=== PATIENT | female | born 1950 | race Caucasian/White ===

== ENCOUNTER 2022-06-13 23:09 | Emergency (ER) | payer OTHER ==
[~2022-06-13] VITALS: Ht 167.6 cm; Wt 81.7 kg
== END 2022-06-14 02:15 | disposition home or self-care (01) ==
LOC: ER 23:09
DX: G50.0 Trigeminal neuralgia (principal)
CPT/HCPCS: 96365; 96375; 99283-25; A9270; J1165; J1885; J2270

== ENCOUNTER 2024-04-25 12:45 | Inpatient (IN) | payer OTHER ==
[~2024-04-25] VITALS: Ht 175.3 cm; Wt 85.9 kg
[2024-04-25] MEDS ORDERED: LOSARTAN POTASS25 M2 PO (13:01)
[2024-04-25] MEDS ORDERED: Amitriptyline H10 MG PO (13:01)
[2024-04-25 13:54] LABS: Prothrombin Time Results 10.7 Sec (9.7-11.5)
[2024-04-25 14:02] LABS: Albumin, Blood 3.5 g/dL (3.4-5.0); Bilirubin, Total 0.5 mg/dL (0.1-1.0); Bun/Creatinine Ratio 21.8 (12.0-20.0); Creatinine, Blood 0.6 mg/dL (0.40-1.00); Globulin, Blood 3.5 g/dL (2.2-4.0); Potassium, Blood 4.9 mmol/L (3.5-5.5)
[2024-04-25 16:14] LABS: BASOPHILS ABSOLUTE AUTO 0.04 K/mm3 (0.00-0.23); BASOPHILS PERCENT AUTO 1 % (0-2); EOSINOPHILS ABSOLUTE AUTO 0.15 K/mm3 (0.00-0.68); EOSINOPHILS PERCENT AUTO 2 % (0-6); Hematocrit 43.3 % (33.0-51.0); Hemoglobin 14.3 g/dL (11.5-16.0); IMMATURE GRAN ABSOLUTE AUTO 0.04 K/mm3 (0.00-0.10); IMMATURE GRAN PERCENT AUTO 1 % (0-1); LYMPHOCYTES ABSOLUTE AUTO 1.71 K/mm3 (0.84-5.20); LYMPHOCYTES PERCENT AUTO 23 % (21-46); MONOCYTES ABSOLUTE AUTO 0.48 K/mm3 (0.16-1.47); MONOCYTES PERCENT AUTO 7 % (4-13); Mean Corpuscular HGB 33.6 pg (26.0-34.0); Mean Corpuscular Volume 102 fL (80-100); Mean Platelet Volume 9.9 fL (9.1-12.4); NEUTROPHILS ABSOLUTE AUTO 4.97 K/mm3 (1.96-9.15); NEUTROPHILS PERCENT AUTO 67 % (41-73); Platelet Count 238 K/mm3 (150-400); RDW Coefficient Variation 13.2 % (11.7-14.2); RDW Standard Deviation 49.8 fL (35.1-46.3); Red Blood Cell Count 4.25 M/mm3 (3.80-5.20); White Blood Cell Count 7.39 K/mm3 (4.00-11.30)
[2024-04-25] MEDS ORDERED: FLU VACC TS2024-25(6MOS UP)/PF 45 MCG/0.5 ML SYRINGE IM SCH (16:20)
[2024-04-25] MEDS ORDERED: Ondansetron HCl 2 MG / ML 2ML Vial IV PRN (16:20)
[2024-04-25] MEDS ORDERED: FentaNYL Citrate 50 MCG/ML 2 ML Injection IV PRN (16:20)
[2024-04-25 16:27] LABS: Anti-Xa UFH, PHA Monitoring <0.10 IU/mL
[2024-04-25] MEDS ORDERED: Heparin Sodium,Porcine/0.5 NS 500 ML IV SCH (16:55)
[2024-04-25] MEDS ORDERED: Heparin Sodium 10,000 Units/ML 1ML MDV IV ONE (16:55)
[2024-04-25] MEDS ORDERED: Amitriptyline HCl 10 MG Tab PO SCH (21:00)
[2024-04-25] MEDS ORDERED: Amitriptyline HCl 50 MG Tab PO ONE (21:55)
[2024-04-25] MEDS ORDERED: Amitriptyline HCl 10 MG Tab PO ONE (22:35)
[2024-04-26] MEDS ORDERED: Dose Adjust by Pharmacy XX STA ×2 (02:12→08:47)
[2024-04-26 06:26] LABS: BASOPHILS ABSOLUTE AUTO 0.04 K/mm3 (0.00-0.23); BASOPHILS PERCENT AUTO 1 % (0-2); EOSINOPHILS ABSOLUTE AUTO 0.19 K/mm3 (0.00-0.68); EOSINOPHILS PERCENT AUTO 3 % (0-6); Hematocrit 38.4 % (33.0-51.0); IMMATURE GRAN ABSOLUTE AUTO 0.06 K/mm3 (0.00-0.10); IMMATURE GRAN PERCENT AUTO 1 % (0-1); LYMPHOCYTES ABSOLUTE AUTO 1.88 K/mm3 (0.84-5.20); LYMPHOCYTES PERCENT AUTO 33 % (21-46); MONOCYTES ABSOLUTE AUTO 0.45 K/mm3 (0.16-1.47); MONOCYTES PERCENT AUTO 8 % (4-13); Mean Corpuscular HGB 34.2 pg (26.0-34.0); Mean Corpuscular HGB Conc 33.9 g/dL (31.5-36.5); Mean Corpuscular Volume 101 fL (80-100); Mean Platelet Volume 9.8 fL (9.1-12.4); NEUTROPHILS ABSOLUTE AUTO 3.12 K/mm3 (1.96-9.15); NEUTROPHILS PERCENT AUTO 54 % (41-73); Platelet Count 225 K/mm3 (150-400); RDW Coefficient Variation 13.2 % (11.7-14.2); RDW Standard Deviation 49.5 fL (35.1-46.3); White Blood Cell Count 5.74 K/mm3 (4.00-11.30)
[2024-04-26] MEDS ORDERED: BACLOFEN5 M1 PO (06:35)
[2024-04-26] MEDS ORDERED: OXYC10TA19 PO (06:38)
[2024-04-26 06:39] VITALS: BP 178/93
[2024-04-26 06:49] LABS: Albumin, Blood 3.4 g/dL (3.4-5.0); Bilirubin, Total 0.6 mg/dL (0.1-1.0); Bun/Creatinine Ratio 16.8 (12.0-20.0); Calcium, Blood 8.9 mg/dL (8.5-10.1); Creatinine, Blood 0.66 mg/dL (0.40-1.00); Globulin, Blood 3.3 g/dL (2.2-4.0); Potassium, Blood 3.9 mmol/L (3.5-5.5); Total Protein, Blood 6.7 g/dL (6.4-8.2)
[2024-04-26 06:52] VITALS: BP 162/98
--- NOTE | 2024-04-26 07:25 | NUR ---
upon arrival of shift, during report, it was found that theheparin was never restarted when the patient [facility] to the [facility]. charge, md, PHARMACY AND PATIENT WERE ALL NOTIFIED, STAT ANTIXAWAS ORDERED AND COMPLETED.
[2024-04-26 08:22] VITALS: BP 148/94
[2024-04-26] MEDS ORDERED: Losartan Potassium 25 MG Tab PO SCH (09:00)
--- NOTE | 2024-04-26 09:18 | NUR ---
PATIENT ANTIXA CAME BACK THERAPEUTIC, SO PER PHARMACY, DRIP WILL CONTINUE @15
--- NOTE | 2024-04-26 09:38 | NUR ---
SPOKE WITH MD, HE STATED THAT PATIENT IS OKAY TO GET UP AND WALK TO THE BATHROOM, THIS IS APPARENTLY NOT A SURGICAL PATIENT, SO HE IS ALSO OKAY WITH PATIENT EATING
[2024-04-26] MEDS ORDERED: OxyCODONE HCL 5 MG TAB PO PRN ×3 (11:15→13:40)
[2024-04-26] MEDS ORDERED: Sennosides 8.6 MG Tab PO PRN (11:20)
[2024-04-26] MEDS ORDERED: Enoxaparin 100 MG/ML 1ML SYR SC SCH (12:00)
[2024-04-26] MEDS ORDERED: OxyCODONE HCL 5 MG TAB PO ONE (12:00)
[2024-04-26] MEDS ORDERED: Baclofen 10 MG Tab PO SCH ×2 (12:00→14:00)
[2024-04-26 18:09] VITALS: BP 135/64
[2024-04-26 20:09] VITALS: BP 108/62
[2024-04-26] MEDS ORDERED: Amitriptyline HCl 10 MG Tab PO SCH (21:00)
[2024-04-26 23:22] VITALS: BP 124/80
--- NOTE | 2024-04-27 04:00 | NUR ---
SHIFT SUMMARY NEURO: PT A/OX4. HAS COMPLAINTS OF BAND LIKE HEADACHE ACROSSED FOREHEAD WHEN AMBULATING. EQUAL STRENGTH THROUGHOUT. PERRLA. CARDIAC: NSR, TACHY WHILE AMBULATING. PULSES PRESENT THROUGHOUT. LUNGS: ON 2L NC. INTERMITTENT DESATURATIONS WHILE SLEEPING AND AGAIN WHILE AMBULATING. PT EDUCATED TO USE COMMODE OR BEDPAN FOR FUTURE BATHROOM NEEDS.
[2024-04-27 04:20] VITALS: BP 120/59
[2024-04-27 04:31] LABS: BASOPHILS ABSOLUTE AUTO 0.05 K/mm3 (0.00-0.23); BASOPHILS PERCENT AUTO 1 % (0-2); EOSINOPHILS ABSOLUTE AUTO 0.22 K/mm3 (0.00-0.68); EOSINOPHILS PERCENT AUTO 3 % (0-6); Hematocrit 39.1 % (33.0-51.0); IMMATURE GRAN ABSOLUTE AUTO 0.06 K/mm3 (0.00-0.10); IMMATURE GRAN PERCENT AUTO 1 % (0-1); LYMPHOCYTES PERCENT AUTO 29 % (21-46); MONOCYTES PERCENT AUTO 9 % (4-13); Mean Corpuscular HGB 34.5 pg (26.0-34.0); Mean Corpuscular HGB Conc 33.2 g/dL (31.5-36.5); Mean Corpuscular Volume 104 fL (80-100); Mean Platelet Volume 9.9 fL (9.1-12.4); NEUTROPHILS ABSOLUTE AUTO 3.98 K/mm3 (1.96-9.15); NEUTROPHILS PERCENT AUTO 58 % (41-73); Platelet Count 240 K/mm3 (150-400); RDW Coefficient Variation 13.3 % (11.7-14.2); RDW Standard Deviation 50.6 fL (35.1-46.3); Red Blood Cell Count 3.77 M/mm3 (3.80-5.20); White Blood Cell Count 6.91 K/mm3 (4.00-11.30)
[2024-04-27] MEDS ORDERED: Acetaminophen 325 MG TABLET PO PRN (04:45)
[2024-04-27 04:48] LABS: Bun/Creatinine Ratio 16.7 (12.0-20.0); Calcium, Blood 9.2 mg/dL (8.5-10.1); Creatinine, Blood 1.02 mg/dL (0.40-1.00); Potassium, Blood 4.1 mmol/L (3.5-5.5)
[2024-04-27 08:25] VITALS: BP 128/94
[2024-04-27 11:30] VITALS: BP 130/79
[2024-04-27] MEDS ORDERED: Apixaban 5 MG Tab PO SCH (12:00)
[2024-04-27] MEDS ORDERED: Polyethylene Glycol 3350 17 gm PO PRN (12:05)
[2024-04-27] MEDS ORDERED: ELIQUIS5 M2 PO (14:44)
[2024-04-27 15:33] VITALS: BP 145/75
--- NOTE | 2024-04-27 18:29 | NUR ---
SHIFT SUMMARY PT REMAINS ALERT AND ORIENTED. BP STABLE. HR REMAINS NSR. PT TITRATED TO ROOM AIR FOR A COUPLE HOURS THIS SHIFT AND THEN PLACED BACK ON 2L NC FOR SATS DROPPING TO MID 80'S. PT COMPLAINS OF SHORTNESS OF BREATH WITH EXERTION. PT COMPLAINS OF PAIN TO INCISION SITE UNDER BREASTS. ICE PACKS ON AND OFF THROUGHOUT SHIFT REQUESTED. WILL REPORT OFF TO ONCOMING RN
[2024-04-27 21:20] VITALS: BP 134/84
--- NOTE | 2024-04-27 23:25 | NUR ---
SHIFT UPDATE NEURO: WNL. PT REPORTS NO HEADACHES OR DIZZINESS SINCE LAST NIGHT CARDIAC: WNL. SINUS IN THE 80'S. WILL UPDATE NOTE IF TACHYCARDIA WHILE AMBULATING IS SEEN. LUNGS: PT REMAINS ON 2L NC. ATTEMPTED TO TITRATE DOWN WITHOUT SUCCESS SO FAR THIS SHIFT.
[2024-04-27 23:38] VITALS: BP 117/73
[2024-04-28 03:55] VITALS: BP 101/68
[2024-04-28 04:30] LABS: BASOPHILS ABSOLUTE AUTO 0.03 K/mm3 (0.00-0.23); BASOPHILS PERCENT AUTO 1 % (0-2); EOSINOPHILS ABSOLUTE AUTO 0.25 K/mm3 (0.00-0.68); EOSINOPHILS PERCENT AUTO 4 % (0-6); Hematocrit 38.5 % (33.0-51.0); Hemoglobin 12.7 g/dL (11.5-16.0); IMMATURE GRAN ABSOLUTE AUTO 0.05 K/mm3 (0.00-0.10); IMMATURE GRAN PERCENT AUTO 1 % (0-1); LYMPHOCYTES ABSOLUTE AUTO 2.17 K/mm3 (0.84-5.20); LYMPHOCYTES PERCENT AUTO 37 % (21-46); MONOCYTES ABSOLUTE AUTO 0.47 K/mm3 (0.16-1.47); MONOCYTES PERCENT AUTO 8 % (4-13); Mean Corpuscular Volume 103 fL (80-100); Mean Platelet Volume 9.9 fL (9.1-12.4); NEUTROPHILS PERCENT AUTO 49 % (41-73); Platelet Count 236 K/mm3 (150-400); Red Blood Cell Count 3.74 M/mm3 (3.80-5.20); White Blood Cell Count 5.87 K/mm3 (4.00-11.30)
[2024-04-28 05:18] LABS: Albumin, Blood 3.2 g/dL (3.4-5.0); Bilirubin, Total 0.4 mg/dL (0.1-1.0); Bun/Creatinine Ratio 29.2 (12.0-20.0); Calcium, Blood 9.2 mg/dL (8.5-10.1); Creatinine, Blood 0.72 mg/dL (0.40-1.00); Globulin, Blood 3.1 g/dL (2.2-4.0); Potassium, Blood 4.2 mmol/L (3.5-5.5); Total Protein, Blood 6.3 g/dL (6.4-8.2)
[2024-04-28 07:48] VITALS: BP 119/82
[2024-04-28 15:22] VITALS: BP 134/84
--- NOTE | 2024-04-28 18:02 | NUR ---
SHIFT SUMMARY PT REMAINS ALERT AND ORIENTED. BP STABLE. HR REMAINS NSR. O2 SATS HAVE REMAINED ABOVE 90% ON RA THIS AFTERNOON. PT EDUCATED ON USE OF INCENTIVE SPIROMETER AND HAS BEEN USING IT FREQUENTLY. PT CONTINUE TO COMPLAIN OF PAIN AT TIMES TO INCISION SITE UNDER BREATS. ICE PACKS PROVIDED REQUESTED. PT UP AMBULATING IN THE ROOM THROUGHOUT THE DAY. WILL REPORT OFF TO ONCOMING RN
[2024-04-28 19:49] VITALS: BP 137/88
[2024-04-28] MEDS ORDERED: TraZODone HCl 50 MG Tab PO ONE (20:10)
--- NOTE | 2024-04-28 23:04 | NUR ---
SHIFT UPDATE NEURO: WNL CARDIAC: SINUS ON TELE. NO CHEST PAIN RESPIRATORY: PT AMBULATING IN THE [facility] WITH A PORTABLE PULSE OX ON RA AND REPORTS SATURATIONS LOW 88%. PT IS UTILIZING THE INCENTIVE SPIROMETER AND IS PULLING 1000ML.
[2024-04-29 02:48] VITALS: BP 139/87
[2024-04-29 04:18] LABS: BASOPHILS ABSOLUTE AUTO 0.04 K/mm3 (0.00-0.23); BASOPHILS PERCENT AUTO 1 % (0-2); EOSINOPHILS ABSOLUTE AUTO 0.27 K/mm3 (0.00-0.68); EOSINOPHILS PERCENT AUTO 5 % (0-6); Hematocrit 38.2 % (33.0-51.0); Hemoglobin 12.7 g/dL (11.5-16.0); IMMATURE GRAN ABSOLUTE AUTO 0.04 K/mm3 (0.00-0.10); IMMATURE GRAN PERCENT AUTO 1 % (0-1); LYMPHOCYTES PERCENT AUTO 26 % (21-46); MONOCYTES ABSOLUTE AUTO 0.55 K/mm3 (0.16-1.47); MONOCYTES PERCENT AUTO 9 % (4-13); Mean Corpuscular HGB 33.9 pg (26.0-34.0); Mean Corpuscular HGB Conc 33.2 g/dL (31.5-36.5); Mean Corpuscular Volume 102 fL (80-100); NEUTROPHILS ABSOLUTE AUTO 3.56 K/mm3 (1.96-9.15); NEUTROPHILS PERCENT AUTO 59 % (41-73); Platelet Count 248 K/mm3 (150-400); RDW Coefficient Variation 12.9 % (11.7-14.2); RDW Standard Deviation 48.2 fL (35.1-46.3); Red Blood Cell Count 3.75 M/mm3 (3.80-5.20); White Blood Cell Count 6.06 K/mm3 (4.00-11.30)
[2024-04-29 04:52] LABS: Albumin, Blood 3.2 g/dL (3.4-5.0); Bilirubin, Total 0.4 mg/dL (0.1-1.0); Bun/Creatinine Ratio 30.6 (12.0-20.0); Calcium, Blood 9.4 mg/dL (8.5-10.1); Creatinine, Blood 0.59 mg/dL (0.40-1.00); Globulin, Blood 3.2 g/dL (2.2-4.0); Total Protein, Blood 6.4 g/dL (6.4-8.2)
[2024-04-29 07:38] VITALS: BP 134/86
[2024-04-29 11:01] VITALS: BP 122/70
[2024-04-29 11:20] VITALS: BP 152/79
[2024-04-29] MEDS ORDERED: TRAZ50 PO (13:13)
--- NOTE | 2024-04-29 13:50 | NUR ---
DISCHARGE PT PROVIDED DISCHARGE INSTRUCTIONS. PT EDUCATED ON NEW MEDICATIONS. HARD SCRIPT FOR PAIN MEDICATION PROVIDED TO PT. ALL QUESTIONS ANSWERED. PT TAKEN OUT VIA WC WITH ALL OF HER BELONGINGS
[2024-05-04] MEDS ORDERED: Apixaban 5 MG Tab PO SCH (09:00)
== END 2024-04-29 13:52 | disposition home or self-care (01) | DRG 299 ==
LOC: ER 12:45 → PCU 16:17 → ERHOLD 16:17 → PCU 04-26 06:23
PROVIDERS: Student in an Organized Health Care Education/Training Program; ADMIT Internal Medicine
DX: T81.718A Complication of other artery following a procedure, not elsewhere classified, initial encounter (principal); I26.92 Saddle embolus of pulmonary artery without acute cor pulmonale; J96.01 Acute respiratory failure with hypoxia; I82.441 Acute embolism and thrombosis of right tibial vein; I10 Essential (primary) hypertension; G50.0 Trigeminal neuralgia; Y83.8 Other surgical procedures as the cause of abnormal reaction of the patient, or of later complication, without mention of misadventure at the time of the procedure
CPT/HCPCS: 36415; 80048; 80053; 83690; 83880; 84484; 85025; 85520; 85610; 85730; 93005; 93010; 93308; 93321; 93970; 94761; 94762; 99285-25; A9270; J1644; J1650; J2405; J3010

== ENCOUNTER 2024-10-21 09:49 | Emergency (ER) | payer OTHER ==
[~2024-10-21] VITALS: Ht 170.2 cm; Wt 83.9 kg
[~2024-10-21 09:49] MED LIST: Amitriptyline H10 MG PO; BACLOFEN5 M1 PO; ELIQUIS5 M2 PO; LOSARTAN POTASS25 M2 PO; OXYC10TA19 PO; TRAZ50 PO
[2024-10-21 10:31] LABS: BASOPHILS ABSOLUTE AUTO 0.06 K/mm3 (0.00-0.23); BASOPHILS PERCENT AUTO 1 % (0-2); EOSINOPHILS ABSOLUTE AUTO 0.22 K/mm3 (0.00-0.68); EOSINOPHILS PERCENT AUTO 2 % (0-6); Hematocrit 42.4 % (33.0-51.0); Hemoglobin 13.9 g/dL (11.5-16.0); IMMATURE GRAN ABSOLUTE AUTO 0.05 K/mm3 (0.00-0.10); IMMATURE GRAN PERCENT AUTO 1 % (0-1); LYMPHOCYTES ABSOLUTE AUTO 2.89 K/mm3 (0.84-5.20); LYMPHOCYTES PERCENT AUTO 31 % (21-46); MONOCYTES ABSOLUTE AUTO 0.60 K/mm3 (0.16-1.47); MONOCYTES PERCENT AUTO 6 % (4-13); Mean Corpuscular HGB Conc 32.8 g/dL (31.5-36.5); Mean Corpuscular Volume 101 fL (80-100); NEUTROPHILS ABSOLUTE AUTO 5.66 K/mm3 (1.96-9.15); NEUTROPHILS PERCENT AUTO 60 % (41-73); NRBC ABSOLUTE 0.00 K/mm3 (0.00-0.02); NRBC Auto 0.0 /100 WBC (0.0-0.2); Platelet Count 267 K/mm3 (150-400); RDW Coefficient Variation 13.1 % (11.7-14.2); RDW Standard Deviation 48.8 fL (35.1-46.3)
[2024-10-21] MEDS ORDERED: LOSARTAN POTASS25 M2 PO (10:34)
[2024-10-21 10:48] LABS: Alanine Aminotransfer (ALT/SGP 24.0 U/L (12-78); Albumin, Blood 4.1 g/dL (3.4-5.0); Albumin/Globulin Ratio 1.1 (0.8-1.8); Anion Gap 7.0 mmol/L (3-11); Aspartate Aminotrans (AST/SGOT 34.0 U/L (12-37); Bilirubin, Total 0.5 mg/dL (0.1-1.0); Blood Urea Nitrogen 24.0 mg/dL (8-24); CO2, Blood 24.0 mmol/L (21-32); Calcium, Blood 9.1 mg/dL (8.5-10.1); Chloride, Blood 107.0 mmol/L (98-108); Creatinine, Blood 0.83 mg/dL (0.40-1.00); Globulin, Blood 3.7 g/dL (2.2-4.0); Glucose, Blood 104.0 mg/dL (70-99); Potassium, Blood 4.1 mmol/L (3.5-5.5); Sodium, Blood 134.0 mmol/L (136-145); Total Protein, Blood 7.8 g/dL (6.4-8.2)
[2024-10-21 12:30] VITALS: BP 124/66
== END 2024-10-21 12:58 | disposition home or self-care (01) ==
LOC: ER 09:49
PROVIDERS: Student in an Organized Health Care Education/Training Program
DX: R07.89 Other chest pain (principal); R00.2 Palpitations; Z79.899 Other long term (current) drug therapy; Z79.01 Long term (current) use of anticoagulants; Z86.711 Personal history of pulmonary embolism
CPT/HCPCS: 71045; 71260; 80053; 84484; 85025; 93005; 93010; 99285-25; Q9967

== ENCOUNTER 2024-10-29 15:59 | Emergency (ER) | payer OTHER ==
[~2024-10-29] VITALS: Ht 170.2 cm; Wt 83.9 kg
[2024-10-29] MEDS ORDERED: NS 1,000 ML IV SCH (16:20)
[2024-10-29 16:21] LABS: BASOPHILS ABSOLUTE AUTO 0.07 K/mm3 (0.00-0.23); BASOPHILS PERCENT AUTO 1 % (0-2); EOSINOPHILS ABSOLUTE AUTO 0.19 K/mm3 (0.00-0.68); EOSINOPHILS PERCENT AUTO 2 % (0-6); Hematocrit 43.3 % (33.0-51.0); Hemoglobin 14.2 g/dL (11.5-16.0); IMMATURE GRAN ABSOLUTE AUTO 0.04 K/mm3 (0.00-0.10); IMMATURE GRAN PERCENT AUTO 0 % (0-1); LYMPHOCYTES ABSOLUTE AUTO 3.51 K/mm3 (0.84-5.20); LYMPHOCYTES PERCENT AUTO 36 % (21-46); MONOCYTES ABSOLUTE AUTO 0.68 K/mm3 (0.16-1.47); MONOCYTES PERCENT AUTO 7 % (4-13); Mean Corpuscular HGB Conc 32.8 g/dL (31.5-36.5); Mean Corpuscular Volume 101 fL (80-100); NEUTROPHILS ABSOLUTE AUTO 5.30 K/mm3 (1.96-9.15); NEUTROPHILS PERCENT AUTO 54 % (41-73); NRBC ABSOLUTE 0.00 K/mm3 (0.00-0.02); NRBC Auto 0.0 /100 WBC (0.0-0.2); Platelet Count 288 K/mm3 (150-400); RDW Coefficient Variation 13.1 % (11.7-14.2); RDW Standard Deviation 48.6 fL (35.1-46.3)
[2024-10-29 17:32] LABS: Magnesium, Blood 2.1 mg/dL (1.6-2.4)
[2024-10-29 17:33] LABS: Thyroid Stimulating Hormone 3.39 uIU/mL (0.360-4.800)
[2024-10-29 17:39] LABS: Alanine Aminotransfer (ALT/SGP 37.0 U/L (12-78); Albumin, Blood 3.7 g/dL (3.4-5.0); Albumin/Globulin Ratio 1.2 (0.8-1.8); Anion Gap 11.0 mmol/L (3-11); Aspartate Aminotrans (AST/SGOT 33.0 U/L (12-37); Bilirubin, Total 0.5 mg/dL (0.1-1.0); Blood Urea Nitrogen 18.0 mg/dL (8-24); CO2, Blood 22.0 mmol/L (21-32); Calcium, Blood 8.7 mg/dL (8.5-10.1); Chloride, Blood 110.0 mmol/L (98-108); Creatinine, Blood 0.74 mg/dL (0.40-1.00); Globulin, Blood 3.2 g/dL (2.2-4.0); Glucose, Blood 81.0 mg/dL (70-99); Potassium, Blood 3.7 mmol/L (3.5-5.5); Sodium, Blood 139.0 mmol/L (136-145); Total Protein, Blood 6.9 g/dL (6.4-8.2)
[2024-10-29] MEDS ORDERED: Ketorolac Tromethamine 15mg Vial IV ONE (18:00)
[2024-10-29 19:10] VITALS: BP 157/85
[2024-10-29] MEDS ORDERED: METO25 PO (19:48)
== END 2024-10-29 20:02 | disposition home or self-care (01) ==
LOC: ER 15:59
PROVIDERS: Emergency Medicine
DX: R00.0 Tachycardia, unspecified (principal); Z79.01 Long term (current) use of anticoagulants; Z79.899 Other long term (current) drug therapy
CPT/HCPCS: 80053; 83735; 83880; 84439; 84443; 84484; 85025; 85379; 93005; 93010; 96361; 96374; 99285-25; A9270; J1885; J7030

== ENCOUNTER 2024-12-31 18:06 | Emergency (ER) | payer OTHER ==
[~2024-12-31] VITALS: Ht 170.2 cm; Wt 83.9 kg
[~2024-12-31 18:06] MED LIST changes: +METO25 PO
[2024-12-31 18:36] LABS: BASOPHILS ABSOLUTE AUTO 0.05 K/mm3 (0.00-0.23); BASOPHILS PERCENT AUTO 1 % (0-2); EOSINOPHILS ABSOLUTE AUTO 0.21 K/mm3 (0.00-0.68); EOSINOPHILS PERCENT AUTO 2 % (0-6); Hematocrit 40.0 % (33.0-51.0); Hemoglobin 13.7 g/dL (11.5-16.0); IMMATURE GRAN ABSOLUTE AUTO 0.04 K/mm3 (0.00-0.10); IMMATURE GRAN PERCENT AUTO 1 % (0-1); LYMPHOCYTES ABSOLUTE AUTO 3.22 K/mm3 (0.84-5.20); LYMPHOCYTES PERCENT AUTO 37 % (21-46); MONOCYTES ABSOLUTE AUTO 0.55 K/mm3 (0.16-1.47); MONOCYTES PERCENT AUTO 6 % (4-13); Mean Corpuscular HGB Conc 34.3 g/dL (31.5-36.5); Mean Corpuscular Volume 99 fL (80-100); NEUTROPHILS ABSOLUTE AUTO 4.54 K/mm3 (1.96-9.15); NEUTROPHILS PERCENT AUTO 53 % (41-73); NRBC ABSOLUTE 0.00 K/mm3 (0.00-0.02); NRBC Auto 0.0 /100 WBC (0.0-0.2); Platelet Count 268 K/mm3 (150-400); RDW Coefficient Variation 13.2 % (11.7-14.2); RDW Standard Deviation 48.0 fL (35.1-46.3)
[2024-12-31 19:02] LABS: Alanine Aminotransfer (ALT/SGP 46.0 U/L (12-78); Albumin, Blood 4.0 g/dL (3.4-5.0); Albumin/Globulin Ratio 1.1 (0.8-1.8); Anion Gap 10.0 mmol/L (3-11); Aspartate Aminotrans (AST/SGOT 39.0 U/L (12-37); Bilirubin, Total 0.6 mg/dL (0.1-1.0); Blood Urea Nitrogen 18.0 mg/dL (8-24); CO2, Blood 23.0 mmol/L (21-32); Calcium, Blood 9.7 mg/dL (8.5-10.1); Chloride, Blood 107.0 mmol/L (98-108); Creatinine, Blood 0.86 mg/dL (0.40-1.00); Globulin, Blood 3.6 g/dL (2.2-4.0); Glucose, Blood 130.0 mg/dL (70-99); Potassium, Blood 3.9 mmol/L (3.5-5.5); Sodium, Blood 136.0 mmol/L (136-145); Total Protein, Blood 7.6 g/dL (6.4-8.2)
[2024-12-31] MEDS ORDERED: DILT30 PO (22:11)
[2024-12-31 22:15] VITALS: BP 148/87
== END 2024-12-31 22:30 | disposition home or self-care (01) ==
LOC: ER 18:06
PROVIDERS: Student in an Organized Health Care Education/Training Program
DX: I47.10 Supraventricular tachycardia, unspecified (principal); I10 Essential (primary) hypertension; Z79.01 Long term (current) use of anticoagulants; Z86.711 Personal history of pulmonary embolism; Z86.718 Personal history of other venous thrombosis and embolism
CPT/HCPCS: 80053; 84484; 85025; 85379